=== PATIENT | female | born 1980 | race American Indian/Alaskan Native ===

== ENCOUNTER 2018-08-31 02:18 | Emergency (ER) | payer MEDICAID, OTHER ==
[2018-08-31 02:40] VITALS: BP 108/72
[2018-08-31 03:26] LABS: Hematocrit 39.1 % (30.3-42.9); Hemoglobin 13.2 gm/dl (10.1-14.3); Mean Corpuscular HGB Conc 34 % (30-34); Mean Corpuscular Volume 83 fl (79-97); Platelet Count 283 K/mm3 (140-440); Red Blood Count 4.73 M/mm3 (3.65-5.03); Red Cell Distribution Width 14.3 % (13.2-15.2)
[2018-08-31 05:34] LABS: Total Cells Counted 100
[2018-08-31 05:35] LABS: Band Neutrophils # (Manual) 0.7 K/mm3; Basophils % (Manual) 0 % (0.0-1.8); Platelet Estimate Consistent w Auto; RBC Morphology Normal
== END 2018-08-31 05:00 | disposition left against medical advice (07) ==
LOC: ED 02:18
DX: J11.1 Influenza due to unidentified influenza virus with other respiratory manifestations (principal); N93.9 Abnormal uterine and vaginal bleeding, unspecified; Z53.21 Procedure and treatment not carried out due to patient leaving prior to being seen by health care provider
CPT/HCPCS: 36415; 84703; 85007; 85025

== ENCOUNTER 2018-11-21 14:04 | Emergency (ER) | payer MEDICAID, OTHER ==
--- NOTE | 2018-11-21 14:30 | Emergency Department Report ---
Blank Doc - Documentation Documentation: 38 y o femalee presents with cc of laceration to right lower leg yesterday afer a slip and fall glass on the ground ACC eval
[2018-11-21 14:32] VITALS: BP 110/65
--- NOTE | 2018-11-21 14:44 | Emergency Department Report ---
ED Laceration HPI - HPI Chief Complaint: Wound/Laceration Stated Complaint: RT LEG LAC Time Seen by Provider: 11/21/18 14:28 Location: Lower Extremity Tetanus Status: Up to Date Laceration Symptoms: No Foreign Body Sensation, No Numbness, No Weakness, No Pain Other History: 38 y o femalee presents with cc of laceration to right lower leg yesterday aftternoon while she was at a house showing after a slip and accidentally grazed a broken glass that was on the ground. She did not have any loc of trauma to the head ED Review of Systems ROS: Stated complaint: RT LEG LAC Other details as noted in HPI Comment: All other systems reviewed and negative ED Past Medical Hx - Past Medical History Previous Medical History?: No - Surgical History Past Surgical History?: No - Social History Smoking Status: Never Smoker Substance Use Type: Marijuana - Medications Home Medications: Home Medications Medication Instructions Recorded Confirmed Last Taken Type Ibuprofen [Motrin] 600 mg PO Q8H PRN #20 tablet 11/21/18 Unknown Rx cephALEXin [Keflex] 500 mg PO Q12HR #10 cap 11/21/18 Unknown Rx Laceration Physical Exam - Exam General: Vital signs noted. No distress. Alert and acting appropriately. Laceration Location: Lower Extremity Full Body Front + Back: 1 - 2 small abrasions noted to area, non bleeding, well healing Laceration Exam: Yes Normal Distal CMS, No Foreign Body, No Exposed Tendon, Vessel, or Nerve, No Tendon Injury ED Course Vital Signs 11/21/18 14:29 Temperature 98.6 F Pulse Rate 62 Respiratory 14 Rate Blood Pressure 110/65 Blood Pressure 110/65 [Right] O2 Sat by Pulse 100 Oximetry ED Medical Decision Making - Medical Decision Making 38 y o female presents with small abrasion lac to right lower leg uncomplicated, well healing discussed with pt she eill not need stitches she will be going home on antibiotis discussed f/u with pcp in 3-5 days VSS no acute distress Critical care attestation.: If time is entered above; I have spent that time in minutes in the direct care of this critically ill patient, excluding procedure time. ED Disposition Clinical Impression: Abrasion of leg Disposition: [id number] TO HOME OR SELFCARE Is pt being admited?: No Does the pt Need Aspirin: No Condition: Stable Instructions: Abrasion (ED) Additional Instructions: take medication as prescribed follow up with primary care doctore within 1 week Prescriptions: cephALEXin [Keflex] 500 mg PO Q12HR #10 cap Ibuprofen [Motrin] 600 mg PO Q8H PRN #20 tablet PRN Reason: Pain Referrals: SHARIF LIANG MD [Primary Care Provider] - 3-5 Days Forms: Work/School Release Form(ED) Time of Disposition: 15:00
== END 2018-11-21 15:28 | disposition home or self-care (01) ==
LOC: ED 14:04
DX: S81.811A Laceration without foreign body, right lower leg, initial encounter (principal); F12.10 Cannabis abuse, uncomplicated; W01.110A Fall on same level from slipping, tripping and stumbling with subsequent striking against sharp glass, initial encounter; Y93.89 Activity, other specified; Y92.098 Other place in other non-institutional residence as the place of occurrence of the external cause; Y99.8 Other external cause status
CPT/HCPCS: 99281